=== PATIENT | male | born 1985 | race Caucasian/White ===

== ENCOUNTER 2017-04-20 05:40 | Emergency (ER) | payer OTHER ==
[2017-04-20 05:52] VITALS: RESP 16; O2SAT 98
--- NOTE | 2017-04-20 06:06 | C.PDOC ---
History Of Present Illness 31M c/o epigastric pain and vomiting that started yesterday morning. he was fine yesterday during the day, then his sx returned when he woke up for work this am. he vomited several times this am as well. reports similar illness in 2015 for which he came here. Time Seen by Provider: 04/20/17 06:06 Chief Complaint (Nursing): Abdominal Pain Past Medical History Vital Signs: Last Vital Signs Temp 98.0 F 04/20/17 05:48 Pulse 66 04/20/17 05:48 Resp 16 04/20/17 05:48 BP 111/79 04/20/17 05:48 Pulse Ox 98 04/20/17 06:14 - Medical History PMH: Kidney Stones Denies: Chronic Kidney Disease Family History: States: Other Other Family History: nc - Social History Hx Alcohol Use: No Hx Substance Use: Yes - Immunization History Hx Tetanus Toxoid Vaccination: No Hx Influenza Vaccination: No Hx Pneumococcal Vaccination: No Review Of Systems Constitutional: Negative for: Fever Cardiovascular: Negative for: Chest Pain Respiratory: Negative for: Cough, Shortness of Breath Gastrointestinal: Positive for: Nausea, Vomiting, Abdominal Pain. Negative for : Diarrhea Genitourinary: Negative for: Dysuria Neurological: Negative for: Weakness, Numbness Physical Exam - Physical Exam Appears: Well, Non-toxic, No Acute Distress Skin: Warm, Dry Head: Atraumatic Eye(s): bilateral: PERRL Oral Mucosa: Moist Cardiovascular: Rhythm Regular Respiratory: Normal Breath Sounds, No Decreased Breath Sounds, No Accessory Muscle Use, No Rales, No Rhonchi, No Stridor, No Wheezing Gastrointestinal/Abdominal: Soft, Tenderness (epigastric), No Distention, No Guarding, No Rebound Neurological/Psych: Oriented x3, Normal Motor, Normal Sensation ED Course And Treatment - Laboratory Results Result Diagrams: 04/20/17 06:16 04/20/17 06:16 O2 Sat by Pulse Oximetry: 98 Medical Decision Making Medical Decision Makin the pt reports feeling "so much better." Disposition - Disposition Disposition: HOME/ ROUTINE Disposition Time: 06:51 Condition: IMPROVED - Clinical Impression Clinical Impression: Gastritis
[2017-04-20] MEDS ORDERED: Sodium Chloride 0.9% 1,000 ML IV ONE (06:11)
[2017-04-20] MEDS ORDERED: Lidocaine 2% Viscous 100 ml PO STA (06:11)
[2017-04-20] MEDS ORDERED: Aluminum Hydroxide/Magnesium Hydroxide Susp (30 mL) PO STA (06:11)
[2017-04-20] MEDS ORDERED: Aluminum Hydroxide/Magnesium Hydroxide Susp (30 mL) ONE (06:17)
[2017-04-20] MEDS ORDERED: Sodium Chloride 0.9% 1,000 ML ONE (06:17)
[2017-04-20 06:22] LABS: BASO # 0.1 K/uL (0.0-0.2); BASO % 0.5 % (0.0-2.0); EOS # 0.2 K/uL (0.0-0.7); EOS % 1.6 % (0.0-4.0); HEMOGLOBIN 14.7 g/dL (12.0-18.0); LYMPH # 1.6 K/uL (1.0-4.3); LYMPH % 15.2 % (20.0-40.0); MEAN CORPUSCULAR HEMOGLOBIN 32.1 pg (27.0-31.0); MEAN CORPUSCULAR HGB CONC 33.8 g/dL (33.0-37.0); MEAN PLATELET VOLUME 10.4 fL (7.2-11.7); MONO # 0.8 K/uL (0.0-0.8); MONO % 7.3 % (0.0-10.0); NEUT # 8.1 K/uL (1.8-7.0); NEUT % 75.4 % (50.0-75.0); RBC 4.57 Mil/uL (4.40-5.90); RED CELL DISTRIBUTION WIDTH 12.2 % (11.5-14.5); WHITE BLOOD COUNT 10.8 K/uL (4.8-10.8)
[2017-04-20 06:33] LABS: ALBUMIN 4.2 g/dL (3.5-5.0)
[2017-04-20 06:36] LABS: ALB/GLOB RATIO 1.2 (1.0-2.1); ALT/SGPT 24 U/L (21-72); AST/SGOT 31 U/L (17-59); BLOOD UREA NITROGEN 15 mg/dL (9-20); CALCIUM 8.9 mg/dl (8.6-10.4); GFR AFRICAN-AMERICAN > 60; GFR NON-AFRICAN AMERICAN > 60; LIPASE 68 U/L (23-300)
[2017-04-20 07:01] VITALS: BP 102/65; PULSE 64; TEMP 97.8
== END 2017-04-20 07:00 | disposition home or self-care (01) ==
LOC: C.ER 05:40
DX: K29.70 Gastritis, unspecified, without bleeding (principal)
CPT/HCPCS: 80053; 83690; 85025; 96374; 96375; 99284; J2405; J7040

== ENCOUNTER 2017-04-21 04:58 | Inpatient (IN) | payer OTHER ==
[2017-04-21] MEDS ORDERED: Sodium Chloride 0.9% 1,000 ML IV ONE ×2 (05:17→05:18)
--- NOTE | 2017-04-21 05:21 | C.PDOC ---
History Of Present Illness Patient is a 31 y/o male that presents to the ED for evaluation of abdominal pain, and vomiting. Patient was seen here last night with similar symptoms, and was discharged home with rx. Otherwise, patient denies any diarrhea, urinary symptoms, or fever. Chief Complaint (Nursing): GI Problem History Per: Patient History/Exam Limitations: no limitations Onset/Duration Of Symptoms: Days Current Symptoms Are (Timing): Still Present Location Of Pain/Discomfort: Epigastric Radiation Of Pain To:: None Quality Of Discomfort: "Pain" Associated Symptoms: Nausea, Vomiting. denies: Fever, Chills, Diarrhea, Loss Of Appetite, Back Pain, Chest Pain, Constipation, Urinary Symptoms Exacerbating Factors: None Alleviating Factors: None Recent travel outside of the [place]: No Additional History Per: Patient Past Medical History Reviewed: Historical Data, Nursing Documentation, Vital Signs Vital Signs: Last Vital Signs Temp 98.2 F 04/21/17 05:05 Pulse 76 04/21/17 05:05 Resp 14 04/21/17 05:05 BP 136/88 04/21/17 05:05 Pulse Ox 99 04/21/17 06:24 - Medical History PMH: Kidney Stones Denies: Chronic Kidney Disease Family History: States: Unknown Family Hx - Social History Hx Alcohol Use: No Hx Substance Use: Yes - Immunization History Hx Tetanus Toxoid Vaccination: No Hx Influenza Vaccination: No Hx Pneumococcal Vaccination: No Review Of Systems Except As Marked, All Systems Reviewed And Found Negative. Constitutional: Negative for: Fever, Chills Gastrointestinal: Positive for: Nausea, Vomiting, Abdominal Pain. Negative for : Diarrhea, Constipation Genitourinary: Negative for: Dysuria, Frequency, Incontinence Musculoskeletal: Negative for: Back Pain Physical Exam - Physical Exam Appears: Non-toxic, Other (In painful distress) Skin: Normal Color, Warm, Dry Head: Atraumatic, Normacephalic Eye(s): bilateral: Normal Inspection Neck: Normal ROM, Supple Chest: Symmetrical Cardiovascular: Rhythm Regular, No Murmur Respiratory: Normal Breath Sounds, No Rales, No Rhonchi, No Wheezing Gastrointestinal/Abdominal: Soft, Tenderness (epigastric), No Distention, No Guarding, No Rebound, Other (active vomiting) Extremity: Bilateral: Atraumatic, Normal ROM Neurological/Psych: Oriented x3, Normal Speech, Normal Cognition ED Course And Treatment - Laboratory Results Result Diagrams: 04/21/17 05:44 O2 Sat by Pulse Oximetry: 99 (on RA) Pulse Ox Interpretation: Normal Progress Note: Blood work, urinalysis ordered and reviewed. Patient was treated with Zofran, Bentyl, Toradol, and IV fluids. Disposition - Disposition Referrals: [facility] at [facility] [Outside] Disposition Time: 07:00 Condition: STABLE - Clinical Impression Clinical Impression: Abdominal pain, Vomiting - Scribe Statement The provider has reviewed the documentation as recorded by the Scribe Sara Be All medical record entries made by the Iramibe were at my direction and personally dictated by me. I have reviewed the chart and agree that the record accurately reflects my personal performance of the history, physical exam, medical decision making, and the department course for this patient. I have also personally directed, reviewed, and agree with the discharge instructions and disposition. Physician Patient Turnover Patient Signed Over To: Albaro Ca Handoff Comments: awaiting Abd CT.
[2017-04-21 05:48] LABS: BASO # 0.1 K/uL (0.0-0.2); BASO % 1.1 % (0.0-2.0); EOS # 0.1 K/uL (0.0-0.7); EOS % 1.1 % (0.0-4.0); HEMOGLOBIN 15.1 g/dL (12.0-18.0); LYMPH # 2.3 K/uL (1.0-4.3); LYMPH % 21.5 % (20.0-40.0); MEAN CELL VOLUME 95.3 fL (80.0-94.0); MEAN CORPUSCULAR HEMOGLOBIN 31.8 pg (27.0-31.0); MEAN CORPUSCULAR HGB CONC 33.3 g/dL (33.0-37.0); MEAN PLATELET VOLUME 10.2 fL (7.2-11.7); MONO # 0.7 K/uL (0.0-0.8); MONO % 6.6 % (0.0-10.0); NEUT # 7.5 K/uL (1.8-7.0); NEUT % 69.7 % (50.0-75.0); RBC 4.76 Mil/uL (4.40-5.90); RED CELL DISTRIBUTION WIDTH 12.2 % (11.5-14.5); WHITE BLOOD COUNT 10.7 K/uL (4.8-10.8)
[2017-04-21 05:59] LABS: URINE BACTERIA RARE (<OCC); URINE BILIRUBIN NEGATIVE (NEGATIVE); URINE BLOOD NEGATIVE (NEGATIVE); URINE CLARITY Clear (Clear); URINE COLOR Yellow (YELLOW); URINE GLUCOSE (UA) NORMAL (Normal); URINE LEUKOCYTE ESTERASE 1+ Leu/uL (Negative); URINE NITRATE NEGATIVE (NEGATIVE); URINE PROTEIN NEGATIVE (NEGATIVE); URINE UROBILINOGEN NORMAL mg/dL (0.2-1.0)
[2017-04-21 06:20] LABS: ALBUMIN 4.4 g/dL (3.5-5.0)
[2017-04-21 06:23] LABS: ALB/GLOB RATIO 1.2 (1.0-2.1); ALT/SGPT 22 U/L (21-72); AST/SGOT 37 U/L (17-59); BLOOD UREA NITROGEN 12 mg/dL (9-20); GFR AFRICAN-AMERICAN > 60; GFR NON-AFRICAN AMERICAN > 60
[2017-04-21 06:24] LABS: CALCIUM 9.1 mg/dl (8.6-10.4); LIPASE 101 U/L (23-300)
[2017-04-21] MEDS ORDERED: Iohexol 240 (50 ml) ONE (06:51)
[2017-04-21] MEDS ORDERED: Potassium Chloride 20 mEq ER Tab PO STA (07:01)
[2017-04-21] MEDS ORDERED: Potassium Chloride 20 mEq ER Tab PO ONE (08:11)
[2017-04-21] MEDS ORDERED: Sodium Chloride 0.9% 1,000 ML ONE (08:11)
[2017-04-21] MEDS ORDERED: Iohexol 350mg/ml 100 ML ONE (08:41)
--- NOTE | 2017-04-21 09:56 | CT ---
PROCEDURE: CT Abdomen and Pelvis with contrast HISTORY: abd pain COMPARISON: None. TECHNIQUE: Helical CT of the abdomen pelvis was performed following oral and intravenous contrast administration. Contrast dose: Omnipaque 350-100 Radiation dose: Total exam DLP = 405 mGy-cm. This CT exam was performed using one or more of the following dose reduction techniques: Automated exposure control, adjustment of the mA and/or kV according to patient size, and/or use of iterative reconstruction technique. FINDINGS: LOWER THORAX: Unrema pole 4 mm subpleural nodule is stable at the right lower lobe based again a periodic noncalcified. Lung bases otherwise appear remarkable for a small hiatal hernia. LIVER: Fatty liver again identified mildly. Borderline hepatomegaly. No intrinsic mass or intrahepatic biliary duct dilatation. GALLBLADDER AND BILE DUCTS: Gallbladder is distended but otherwise unremarkable and appears stable in appearance overall. No extrapyramidal though no intrahepatic biliary duct dilatation identified. PANCREAS: Unremarkable. No gross lesion or ductal dilatation. SPLEEN: Unremarkable. ADRENALS: Unremarkable. No mass. KIDNEYS AND URETERS: Unremarkable. No hydronephrosis. No solid mass. VASCULATURE: Unremarkable. No aortic aneurysm. BOWEL: No bowel obstruction measure edema ascites are presternal gas identified however, there is mural thickening involving the hepatic flexure and transverse colon segments. Oral contrast has not opacified the large bowel and the majority of small bowel, limiting the evaluation. There is at least segmental colitis. Pancolitis is difficult to completely exclude given retained fecal material obscuring the lumen of numerous large bowel segments as well as the lack of oral contrast migration. No abscess identified. APPENDIX: Normal appendix. PERITONEUM: Unremarkable. No free fluid. No free air. LYMPH NODES: Unremarkable. No enlarged lymph nodes. BLADDER: Unremarkable. REPRODUCTIVE: Unremarkable. BONES: No acute fracture. OTHER FINDINGS: None. IMPRESSION: 1. Findings suspicious for segmental colitis affecting the bilateral flexors as well as a traversed segment of the large bowel. Pancolitis difficult to completely exclude however lack of oral contrast transit and retained fecal material obscure the ascending and descending colon segments. No abscess, free air, ascites or definite mesenteric edema. Further clinical correlation is advised. 2. No additional potential acute findings. 3. Stable benign nodule right lower lobe. Sign
[2017-04-21] MEDS ORDERED: Piperacillin/Tazobact 3.375 gm 100 ML IVPB STA (09:59)
[2017-04-21] MEDS ORDERED: DiphenhydrAMINE 50 mg/ml Inj IVP STA (10:21)
[2017-04-21] MEDS ORDERED: DiphenhydrAMINE 50 mg/ml Inj ONE (10:23)
[2017-04-21] MEDS: Dextrose 5%/0.9% NS 1,000 ML IV SCH ×2 (13:05→21:23)
[2017-04-21] MEDS: Ciprofloxacin 400mg/200ml D5W 400 MG/200 ML BAG IVPB SCH ×2 (13:06→22:00)
[2017-04-21] MEDS ORDERED: HYDROmorphone 1 mg/ml ISec IVP PRN (15:13)
[2017-04-21] MEDS: metroNIDAZOLE IV 500 mg/100 ml 500 MG/100 ML BAG IVPB SCH ×2 (15:15→22:00)
[2017-04-21] MEDS ORDERED: Dextrose 5%/0.45% NS 1,000 ML IV SCH (17:15)
[2017-04-21] MEDS: Potassium Chloride 10 MEQ in Dextrose 5%/0.45% NS 1,000 ML IV SCH (21:19)
--- NOTE | 2017-04-21 23:08 | CP.PCM.HP ---
History of Present Illness - History of Present Illness History of Present Illness: Patient is a 31 y/o male that presents to the ED for evaluation of abdominal pain, and vomiting. Patient was seen here last night with similar symptoms, and was discharged home with rx. Otherwise, patient denies any diarrhea, urinary symptoms, or fever. Present on Admission - Present on Admission Any Indicators Present on Admission: Yes Past Patient History - Infectious Disease Hx of Infectious Diseases: None - Past Medical History & Family History Past Medical History?: Yes - Past Social History Smoking Status: Heavy Smoker > 10 Cigarettes Daily - CARDIAC Hx Cardiac Disorders: No - PULMONARY Hx Respiratory Disorders: No - NEUROLOGICAL Hx Neurological Disorder: No - HEENT Hx HEENT Problems: No - RENAL Hx Chronic Kidney Disease: No Hx Kidney Stones: Yes - ENDOCRINE/METABOLIC Hx Endocrine Disorders: No - HEMATOLOGICAL/ONCOLOGICAL Hx Blood Disorders: No - INTEGUMENTARY Hx Dermatological Problems: No - MUSCULOSKELETAL/RHEUMATOLOGICAL Hx Musculoskeletal Disorders: No Hx Falls: No - GASTROINTESTINAL Hx Gastrointestinal Disorders: No - GENITOURINARY/GYNECOLOGICAL Hx Genitourinary Disorders: No - PSYCHIATRIC Hx Substance Use: Yes - SURGICAL HISTORY Hx Surgeries: Yes Other/Comment: testicular surgery at age approx 13 yrs old - ANESTHESIA Hx Anesthesia: Yes Hx Anesthesia Reactions: No Hx Malignant Hyperthermia: No Meds Home Medications: Home Medication List Medication Instructions Recorded Confirmed Type Ciprofloxacin [Cipro] 500 mg PO BID #6 tab 04/25/17 Rx Metoclopramide HCl [Reglan] 5 mg PO TID #9 tablet 04/25/17 Rx Metronidazole [Flagyl] 500 mg PO Q8 #9 tablet 04/25/17 Rx Pantoprazole [Protonix] 40 mg PO DAILY #30 ect 04/25/17 Rx Allergies/Adverse Reactions: Allergies Allergy/AdvReac Type Severity Reaction Status Date / Time No Known Allergies Allergy Verified 04/21/17 05:08 Results - Vital Signs Recent Vital Signs: Last Vital Signs Temp 98.5 F 04/21/17 16:27 Pulse 71 04/21/17 16:27 Resp 20 04/21/17 16:27 BP 113/68 04/21/17 16:27 Pulse Ox 99 04/21/17 16:27 - Labs Result Diagrams: 04/25/17 09:59 04/25/17 09:59
[2017-04-22] MEDS: Potassium Chloride 10 MEQ in Dextrose 5%/0.45% NS 1,000 ML IV SCH ×3 (05:35→17:44)
[2017-04-22] MEDS: metroNIDAZOLE IV 500 mg/100 ml 500 MG/100 ML BAG IVPB SCH ×3 (05:36→21:38)
[2017-04-22 06:25] LABS: BASO % 0.5 % (0.0-2.0); EOS # 0.1 K/uL (0.0-0.7); EOS % 0.9 % (0.0-4.0); LYMPH # 2.4 K/uL (1.0-4.3); LYMPH % 28.8 % (20.0-40.0); MEAN CELL VOLUME 95.6 fL (80.0-94.0); MEAN CORPUSCULAR HEMOGLOBIN 32.7 pg (27.0-31.0); MEAN CORPUSCULAR HGB CONC 34.2 g/dL (33.0-37.0); MEAN PLATELET VOLUME 10.1 fL (7.2-11.7); MONO # 0.9 K/uL (0.0-0.8); MONO % 10.6 % (0.0-10.0); NEUT % 59.2 % (50.0-75.0); NRBC % 0.1 % (0.0-2.0); RBC 3.99 Mil/uL (4.40-5.90); RED CELL DISTRIBUTION WIDTH 12.1 % (11.5-14.5); WHITE BLOOD COUNT 8.4 K/uL (4.8-10.8)
[2017-04-22 06:37] LABS: BLOOD UREA NITROGEN 10 mg/dL (9-20); CALCIUM 7.6 mg/dl (8.6-10.4); GFR AFRICAN-AMERICAN > 60; GFR NON-AFRICAN AMERICAN > 60
[2017-04-22] MEDS: Dextrose 5%/0.9% NS 1,000 ML IV SCH ×2 (08:23→20:04)
[2017-04-22] MEDS ORDERED: Propofol 10 mg/ml Inj (20 ML) ONE (10:53)
[2017-04-22] MEDS: Ciprofloxacin 400mg/200ml D5W 400 MG/200 ML BAG IVPB SCH ×2 (12:38→22:19)
[2017-04-22 18:28] LABS: URINE BACTERIA FEW (<OCC); URINE BILIRUBIN NEGATIVE (NEGATIVE); URINE BLOOD NEGATIVE (NEGATIVE); URINE CLARITY Hazy (Clear); URINE COLOR Amber (YELLOW); URINE GLUCOSE (UA) NORMAL (Normal); URINE LEUKOCYTE ESTERASE NEG Leu/uL (Negative); URINE NITRATE NEGATIVE (NEGATIVE); URINE PROTEIN 1+ mg/dL (NEGATIVE); URINE UROBILINOGEN NORMAL mg/dL (0.2-1.0)
--- NOTE | 2017-04-22 23:05 | CP.PCM.PN ---
Subjective - Date & Time of Evaluation Date of Evaluation: 04/22/17 Time of Evaluation: 20:45 - Subjective Subjective: Pt underwent EGD which shows gastritis and doudenitis, pt is on clear liquid diet Objective - Vital Signs/Intake and Output Vital Signs (last 24 hours): Temp Pulse Resp BP Pulse Ox 98.0 F 56 L 20 117/69 98 04/22/17 15:00 04/22/17 15:00 04/22/17 15:00 04/22/17 15:00 04/22/17 15:00 Intake and Output: 04/22/17 04/23/17 18:59 06:59 Intake Total 2100 Balance 2100 - Medications Medications: Current Medications Bisacodyl (Dulcolax) 10 mg PO ONCE ONE Stop: 04/24/17 17:01 Hydromorphone HCl (Dilaudid) 1 mg IVP Q4H PRN PRN Reason: Pain, severe (8-10) Ciprofloxacin (Cipro 400mg/200ml Dsw) 400 mg in 200 mls @ 133 mls/hr IVPB Q12H [facility] Last Admin: 04/22/17 22:19 Dose: 133 mls/hr Dextrose/Sodium Chloride (Dextrose 5%/0.9% Ns 1000 Ml) 1,000 mls @ 100 mls/hr IV .Q10H MAXIME Last Admin: 04/22/17 20:04 Dose: Not Given Metronidazole (Flagyl) 500 mg in 100 mls @ 100 mls/hr IVPB Q8 MAXIME Last Admin: 04/22/17 21:38 Dose: 100 mls/hr Potassium Chloride 10 meq/ (Dextrose/Sodium Chloride) 1,005 mls @ 100 mls/hr IV .Q10H3M [facility] Last Admin: 04/22/17 17:44 Dose: 100 mls/hr Metoclopramide HCl (Reglan) 5 mg IVP Q6 MAXIME Last Admin: 04/22/17 17:42 Dose: 5 mg Ondansetron HCl (Zofran Inj) 4 mg IVP Q6 PRN PRN Reason: Nausea/Vomiting Last Admin: 04/21/17 15:13 Dose: 4 mg Pneumococcal Polyvalent Vaccine (Pneumovax 23 Vaccine) 0.5 ml IM .ONCE ONE Stop: 04/23/17 10:01 Polyethylene Glycol/Electrolytes (Golytely) 4,000 ml PO ONCE ONE Stop: 04/24/17 09:01 Sucralfate (Carafate Tab) 1 gm PO ACBHS [facility] Last Admin: 04/22/17 21:39 Dose: 1 gm - Labs Labs: 04/22/17 06:16 04/22/17 06:16 - Constitutional Appears: No Acute Distress - Head Exam Head Exam: ATRAUMATIC, NORMAL INSPECTION, NORMOCEPHALIC - Eye Exam Eye Exam: EOMI, Normal appearance, PERRL Pupil Exam: NORMAL ACCOMODATION, PERRL - Cardiovascular Exam Cardiovascular Exam: +S1, +S2 - GI/Abdominal Exam GI & Abdominal Exam: Soft, Normal Bowel Sounds. absent: Tenderness Assessment and Plan (1) Abnormal findings on esophagogastroduodenoscopy (EGD) Status: Acute (2) Abdominal pain Status: Acute (3) Colitis Status: Acute (4) Acute gastroenteritis Status: Acute (5) Gastritis Status: Acute
[2017-04-23] MEDS: metroNIDAZOLE IV 500 mg/100 ml 500 MG/100 ML BAG IVPB SCH ×3 (05:25→21:36)
[2017-04-23] MEDS: Dextrose 5%/0.9% NS 1,000 ML IV SCH ×3 (05:34→23:18)
[2017-04-23] MEDS: Potassium Chloride 10 MEQ in Dextrose 5%/0.45% NS 1,000 ML IV SCH ×4 (06:32→19:23)
[2017-04-23] MEDS ORDERED: Pneumococcal 23-Valent Vaccine IM ONE (10:00)
[2017-04-23 10:18] LABS: C DIFF TOXIN A B NEGATIVE (NEGATIVE)
[2017-04-23 10:41] LABS: FECAL LEUKOCYTES NEGATIVE (NEGATIVE)
[2017-04-23] MEDS: Ciprofloxacin 400mg/200ml D5W 400 MG/200 ML BAG IVPB SCH ×2 (11:27→22:09)
[2017-04-24] MEDS: Potassium Chloride 10 MEQ in Dextrose 5%/0.45% NS 1,000 ML IV SCH ×3 (00:23→17:44)
--- NOTE | 2017-04-24 01:21 | CP.PCM.PN ---
Subjective - Date & Time of Evaluation Date of Evaluation: 04/23/17 Time of Evaluation: 13:05 - Subjective Subjective: Pt underwent EGD which shows gastritis and doudenitis, pt is on clear liquid diet Objective - Vital Signs/Intake and Output Vital Signs (last 24 hours): Temp Pulse Resp BP Pulse Ox 98.5 F 70 97 H 116/73 20 L 04/24/17 00:00 04/24/17 00:00 04/24/17 00:00 04/24/17 00:00 04/24/17 00:00 Intake and Output: 04/23/17 04/24/17 18:59 06:59 Intake Total 1400 Balance 1400 - Medications Medications: Current Medications Bisacodyl (Dulcolax) 10 mg PO ONCE ONE Stop: 04/24/17 17:01 Hydromorphone HCl (Dilaudid) 1 mg IVP Q4H PRN PRN Reason: Pain, severe (8-10) Ciprofloxacin (Cipro 400mg/200ml Dsw) 400 mg in 200 mls @ 133 mls/hr IVPB Q12H [facility] Last Admin: 04/23/17 22:09 Dose: 133 mls/hr Dextrose/Sodium Chloride (Dextrose 5%/0.9% Ns 1000 Ml) 1,000 mls @ 100 mls/hr IV .Q10H [facility] Last Admin: 04/23/17 23:18 Dose: Not Given Metronidazole (Flagyl) 500 mg in 100 mls @ 100 mls/hr IVPB Q8 [facility] Last Admin: 04/23/17 21:36 Dose: 100 mls/hr Potassium Chloride 10 meq/ (Dextrose/Sodium Chloride) 1,005 mls @ 100 mls/hr IV .Q10H3M [facility] Last Admin: 04/24/17 00:23 Dose: 100 mls/hr Metoclopramide HCl (Reglan) 5 mg IVP Q6 AMX[facility] Last Admin: 04/24/17 00:23 Dose: 5 mg Ondansetron HCl (Zofran Inj) 4 mg IVP Q6 PRN PRN Reason: Nausea/Vomiting Last Admin: 04/21/17 15:13 Dose: 4 mg Polyethylene Glycol/Electrolytes (Golytely) 4,000 ml PO ONCE ONE Stop: 04/24/17 09:01 Sucralfate (Carafate Tab) 1 gm PO [facility] Last Admin: 04/23/17 21:36 Dose: 1 gm - Constitutional Appears: No Acute Distress - Head Exam Head Exam: ATRAUMATIC, NORMAL INSPECTION, NORMOCEPHALIC - Eye Exam Eye Exam: EOMI, Normal appearance, PERRL Pupil Exam: NORMAL ACCOMODATION, PERRL - Respiratory Exam Respiratory Exam: Clear to Ausculation Bilateral, NORMAL BREATHING PATTERN - Cardiovascular Exam Cardiovascular Exam: REGULAR RHYTHM, +S1, +S2. absent: Murmur - GI/Abdominal Exam GI & Abdominal Exam: Soft, Normal Bowel Sounds. absent: Tenderness Assessment and Plan (1) Abnormal findings on esophagogastroduodenoscopy (EGD) Status: Acute (2) Abdominal pain Status: Acute (3) Colitis Status: Acute (4) Acute gastroenteritis Status: Acute (5) Gastritis Status: Acute
[2017-04-24] MEDS: metroNIDAZOLE IV 500 mg/100 ml 500 MG/100 ML BAG IVPB SCH ×3 (05:19→21:32)
[2017-04-24] MEDS ORDERED: Peg-Electrolyte Oral Soln 4L (Golytely) PO ONE (09:00)
[2017-04-24] MEDS: Dextrose 5%/0.9% NS 1,000 ML IV SCH (09:00)
[2017-04-24] MEDS: Ciprofloxacin 400mg/200ml D5W 400 MG/200 ML BAG IVPB SCH ×2 (11:29→22:16)
[2017-04-24] MEDS ORDERED: Bisacodyl 5mg EC Tab PO ONE (17:00)
--- NOTE | 2017-04-24 21:31 | CP.PCM.DIS ---
Provider - Provider Date of Admission: 04/23/17 11:46 Attending physician: Danny Allen MD Diagnosis - Discharge Diagnosis (1) Abnormal findings on esophagogastroduodenoscopy (EGD) Status: Acute (2) Abdominal pain Status: Acute (3) Colitis Status: Acute (4) Acute gastroenteritis Status: Acute (5) Gastritis Status: Acute Hospital Course - Lab Results Lab Results: Most Recent Lab Values WBC 8.4 K/uL (4.8-10.8) 04/22/17 06:16 RBC 3.99 Mil/uL (4.40-5.90) L 04/22/17 06:16 Hgb 13.0 g/dL (12.0-18.0) D 04/22/17 06:16 Hct 38.1 % (35.0-51.0) 04/22/17 06:16 MCV 95.6 fL (80.0-94.0) H 04/22/17 06:16 MCH 32.7 pg (27.0-31.0) H 04/22/17 06:16 MCHC 34.2 g/dL (33.0-37.0) 04/22/17 06:16 RDW 12.1 % (11.5-14.5) 04/22/17 06:16 Plt Count 213 K/uL (130-400) 04/22/17 06:16 MPV 10.1 fL (7.2-11.7) 04/22/17 06:16 Neut % (Auto) 59.2 % (50.0-75.0) 04/22/17 06:16 Lymph % (Auto) 28.8 % (20.0-40.0) 04/22/17 06:16 [place] % (Auto) 10.6 % (0.0-10.0) H 04/22/17 06:16 Eos % (Auto) 0.9 % (0.0-4.0) 04/22/17 06:16 Baso % (Auto) 0.5 % (0.0-2.0) 04/22/17 06:16 Neut # 5.0 K/uL (1.8-7.0) 04/22/17 06:16 Lymph # 2.4 K/uL (1.0-4.3) 04/22/17 06:16 [place] # 0.9 K/uL (0.0-0.8) H 04/22/17 06:16 Eos # 0.1 K/uL (0.0-0.7) 04/22/17 06:16 Baso # 0.0 K/uL (0.0-0.2) 04/22/17 06:16 ESR 5 mm/hr (0-15) 04/22/17 06:16 Sodium 137 mmol/L (132-148) 04/22/17 06:16 Potassium 3.3 mmol/L (3.6-5.2) L 04/22/17 06:16 Chloride 103 mmol/L (98-107) 04/22/17 06:16 Carbon Dioxide 22 mmol/L (22-30) 04/22/17 06:16 Anion Gap 15 (10-20) 04/22/17 06:16 BUN 10 mg/dL (9-20) 04/22/17 06:16 Creatinine 0.7 MG/DL (0.8-1.5) L 04/22/17 06:16 Est GFR ( Amer) > 60 04/22/17 06:16 Est GFR (Non-Af Amer) > 60 04/22/17 06:16 Random Glucose 92 mg/dL (75-110) 04/22/17 06:16 Calcium 7.6 mg/dl (8.6-10.4) L 04/22/17 06:16 Total Bilirubin 2.3 mg/dL (0.2-1.3) H 04/21/17 05:44 AST 37 U/L (17-59) 04/21/17 05:44 ALT 22 U/L (21-72) 04/21/17 05:44 Alkaline Phosphatase 95 U/L (38-126) 04/21/17 05:44 Total Protein 8.1 g/dL (6.3-8.3) 04/21/17 05:44 Albumin 4.4 g/dL (3.5-5.0) 04/21/17 05:44 Globulin 3.7 gm/dL (2.2-3.9) 04/21/17 05:44 Albumin/Globulin Ratio 1.2 (1.0-2.1) 04/21/17 05:44 Lipase 101 U/L (23-300) 04/21/17 05:44 Carcinoembryonic Ag 0.8 ng/mL (0-3.0) 04/22/17 06:16 Urine Color Ryann (YELLOW) 04/22/17 18:09 Urine Clarity Hazy (Clear) 04/22/17 18:09 Urine pH 6.0 (5.0-8.0) 04/22/17 18:09 Ur Specific [place] 1.034 (1.003-1.030) H 04/22/17 18:09 Urine Protein 1+ mg/dL (NEGATIVE) H 04/22/17 18:09 Urine Glucose (UA) Normal mg/dL (Normal) 04/22/17 18:09 Urine Ketones 1+ mg/dL (NEGATIVE) H 04/22/17 18:09 Urine Blood Negative (NEGATIVE) 04/22/17 18:09 Urine Nitrate Negative (NEGATIVE) 04/22/17 18:09 Urine Bilirubin Negative (NEGATIVE) 04/22/17 18:09 Urine Urobilinogen Normal mg/dL (0.2-1.0) 04/22/17 18:09 Ur Leukocyte Esterase Neg Fernanda/uL (Negative) 04/22/17 18:09 Urine WBC (Auto) 5 /hpf (0-5) 04/22/17 18:09 Urine RBC (Auto) 4 /hpf (0-3) H 04/22/17 18:09 Urine Bacteria Few (<OCC) H 04/22/17 18:09 Stool Leukocytes, Qual Negative (NEGATIVE) 04/21/17 Unknown C. difficile Ag & Toxin Negative (NEGATIVE) 04/21/17 Unknown Discharge Exam - Head Exam Head Exam: ATRAUMATIC, NORMAL INSPECTION, NORMOCEPHALIC Discharge Plan - Follow Up Plan Condition: STABLE Disposition: HOME/ ROUTINE Referrals: [facility] [Outside]
--- NOTE | 2017-04-24 21:31 | CP.PCM.PN ---
Subjective - Date & Time of Evaluation Date of Evaluation: 04/24/17 Time of Evaluation: 10:00 - Subjective Subjective: Pt seen & examined, is for colononscopy tommorow morning Objective - Vital Signs/Intake and Output Vital Signs (last 24 hours): Temp Pulse Resp BP Pulse Ox 98.2 F 56 L 20 115/77 97 04/24/17 15:00 04/24/17 15:00 04/24/17 15:00 04/24/17 15:00 04/24/17 15:00 - Medications Medications: Current Medications Hydromorphone HCl (Dilaudid) 1 mg IVP Q4H PRN PRN Reason: Pain, severe (8-10) Ciprofloxacin (Cipro 400mg/200ml Dsw) 400 mg in 200 mls @ 133 mls/hr IVPB Q12H [facility] Last Admin: 04/24/17 11:29 Dose: 133 mls/hr Metronidazole (Flagyl) 500 mg in 100 mls @ 100 mls/hr IVPB Q8 [facility] Last Admin: 04/24/17 15:15 Dose: 100 mls/hr Metoclopramide HCl (Reglan) 5 mg IVP Q6 MAXIME Last Admin: 04/24/17 17:44 Dose: 5 mg Ondansetron HCl (Zofran Inj) 4 mg IVP Q6 PRN PRN Reason: Nausea/Vomiting Last Admin: 04/21/17 15:13 Dose: 4 mg Sucralfate (Carafate Tab) 1 gm PO ACBHS [facility] Last Admin: 04/24/17 08:39 Dose: Not Given - Constitutional Appears: No Acute Distress - Head Exam Head Exam: ATRAUMATIC, NORMAL INSPECTION, NORMOCEPHALIC - Eye Exam Eye Exam: EOMI, Normal appearance, PERRL Pupil Exam: NORMAL ACCOMODATION, PERRL - Respiratory Exam Respiratory Exam: Clear to Ausculation Bilateral, NORMAL BREATHING PATTERN - Cardiovascular Exam Cardiovascular Exam: REGULAR RHYTHM, +S1, +S2. absent: Murmur - GI/Abdominal Exam GI & Abdominal Exam: Soft, Normal Bowel Sounds. absent: Tenderness - Neurological Exam Neurological Exam: Alert, Awake, CN II-XII Intact, Normal Gait, Oriented x3 - Psychiatric Exam Psychiatric exam: Normal Affect, Normal Mood Assessment and Plan (1) Abnormal findings on esophagogastroduodenoscopy (EGD) Status: Acute (2) Abdominal pain Status: Acute (3) Colitis Status: Acute (4) Acute gastroenteritis Status: Acute (5) Gastritis Status: Acute
[2017-04-24] MEDS: Potassium Chl 10 mEq in D5-1/2 1,000 ML IV SCH (23:52)
[2017-04-25] MEDS: metroNIDAZOLE IV 500 mg/100 ml 500 MG/100 ML BAG IVPB SCH ×2 (05:14→14:21)
[2017-04-25 10:04] LABS: BASO % 0.8 % (0.0-2.0); EOS # 0.2 K/uL (0.0-0.7); EOS % 2.9 % (0.0-4.0); HEMOGLOBIN 14.1 g/dL (12.0-18.0); LYMPH # 1.7 K/uL (1.0-4.3); LYMPH % 31.7 % (20.0-40.0); MEAN CELL VOLUME 94.5 fL (80.0-94.0); MEAN CORPUSCULAR HGB CONC 33.8 g/dL (33.0-37.0); MONO # 0.7 K/uL (0.0-0.8); MONO % 13.2 % (0.0-10.0); NEUT # 2.8 K/uL (1.8-7.0); NEUT % 51.4 % (50.0-75.0); RBC 4.42 Mil/uL (4.40-5.90); RED CELL DISTRIBUTION WIDTH 11.9 % (11.5-14.5); WHITE BLOOD COUNT 5.4 K/uL (4.8-10.8)
[2017-04-25 10:16] LABS: ALB/GLOB RATIO 1.1 (1.0-2.1); ALT/SGPT 48 U/L (21-72); AST/SGOT 51 U/L (17-59); BLOOD UREA NITROGEN 7 mg/dL (9-20); GFR AFRICAN-AMERICAN > 60; GFR NON-AFRICAN AMERICAN > 60
[2017-04-25] MEDS: Potassium Chl 10 mEq in D5-1/2 1,000 ML IV SCH (10:21)
[2017-04-25] MEDS: Ciprofloxacin 400mg/200ml D5W 400 MG/200 ML BAG IVPB SCH (11:24)
--- NOTE | 2017-04-25 11:57 | CP.PCM.PN ---
Subjective - Date & Time of Evaluation Date of Evaluation: 04/25/17 Time of Evaluation: 19:00 Objective - Vital Signs/Intake and Output Vital Signs (last 24 hours): Temp Pulse Resp BP Pulse Ox 98.3 F 52 L 20 107/57 L 97 04/25/17 08:48 04/25/17 08:48 04/25/17 08:48 04/25/17 08:48 04/25/17 08:48 Intake and Output: 04/25/17 04/25/17 06:59 18:59 Intake Total 800 Balance 800 - Medications Medications: Current Medications Hydromorphone HCl (Dilaudid) 1 mg IVP Q4H PRN PRN Reason: Pain, severe (8-10) Ciprofloxacin (Cipro 400mg/200ml Dsw) 400 mg in 200 mls @ 133 mls/hr IVPB Q12H [facility] Last Admin: 04/25/17 11:24 Dose: 133 mls/hr Metronidazole (Flagyl) 500 mg in 100 mls @ 100 mls/hr IVPB Q8 [facility] Last Admin: 04/25/17 05:14 Dose: 100 mls/hr Potassium Chloride/Dextrose/Sod Cl (Potassium Chl 10 Meq In D5-1/2ns) 1,000 mls @ 100 mls/hr IV .Q10H [facility] Last Admin: 04/25/17 10:21 Dose: 100 mls/hr Metoclopramide HCl (Reglan) 5 mg IVP Q6 MAXIME Last Admin: 04/25/17 05:15 Dose: 5 mg Ondansetron HCl (Zofran Inj) 4 mg IVP Q6 PRN PRN Reason: Nausea/Vomiting Last Admin: 04/21/17 15:13 Dose: 4 mg Sucralfate (Carafate Tab) 1 gm PO ACBHS [facility] Last Admin: 04/25/17 08:30 Dose: Not Given - Labs Labs: 04/25/17 09:59 04/25/17 09:59 Assessment and Plan (1) Abnormal findings on esophagogastroduodenoscopy (EGD) Status: Acute (2) Abdominal pain Status: Acute (3) Colitis Status: Acute (4) Acute gastroenteritis Status: Acute (5) Gastritis Status: Acute
[2017-04-25] MEDS ORDERED: Propofol 10 mg/ml Inj (20 ML) ONE ×2 (13:30→13:37)
[2017-04-25] MEDS ORDERED: Lactated Ringer's 1,000 ML IV ONE (13:30)
--- NOTE | 2017-04-25 15:00 | CON ---
DATE: 04/21/2017 LOCATION: 352, bed A I was called for GI consultation by the admitting medical staff. The patient was seen and fully examined for GI consultation on 04/21/2017. The entire chart was reviewed including but not limited to the most recent lab and radiologic results, current and previous medication list, current and previous medical events, allergic to medication list as well as old available current and previous medical records. I did discuss with the staff at length. HISTORY: This is a 31-year-old male who was admitted to the hospital through the Emergency Room with excessive severe abdominal pain, recurrent nausea and vomiting with recent change of bowel movement over the last 2 to 3 days with more than 1 visit to the Emergency Room due to above with postprandial abdominal distension. No reported active bleeding, however, the patient stated that his contained very dark, brownish to black color vomit. The patient also had such episodes in 2014, no aggressive GI work up done at that time. PAST MEDICAL HISTORY: Significant for renal stones. ALLERGIES TO MEDICATIONS: Unknown. ALCOHOL INTAKE: None. Occasional cigarette smoking reported. FAMILY HISTORY: Unrelated to specific GI disorder. After being admitted to the hospital, the patient was found to have normal hemoglobin and hematocrit with low potassium level of 3.2 and increased total bilirubin to 2.3. Abdominal and pelvic CAT scan was done. Official report is seen, indicative of colitis with some retained fecal material in the ascending and descending colon. PHYSICAL EXAMINATION: GENERAL: A 31-year-old male, appeared to be awake, alert and oriented. VITAL SIGNS: Afebrile with heart rate of 72 , respiratory rate 18 to 20 with blood pressure 110/66. HEENT: Showed pale, dry oral mucous membrane. Nonicteric sclerae. LUNGS: Revealed scattered crepitations, decreased air entry at bases. LYMPH NODES: No lymphadenitis or lymphadenopathy. HEART: Positive S1 and S2. ABDOMEN: Soft with generalized to severe tenderness in the midepigastric as well as the right and the left lower quadrant. No mass or organomegaly. No rebound tenderness or guarding. RECTAL: The patient refused. EXTREMITIES: With significant clubbing, cyanosis or edema. NEUROLOGIC: No new reported neurological deficits, sensory or motor. IMPRESSION: 1. Re-exacerbation of peptic ulcer disease with nausea and vomiting of coffee-ground material like contents. Rule out gastric versus duodenal ulcer. 2. Acute colitis of unclear etiology, versus an early stage of inflammatory bowel disease, by radiology study results only. 3. Known history of renal stone. PLAN: 1. Agree with your plan. 2. IV antibiotics. 3. Hydration. 4. Correct any underlying electrolyte imbalance. 5. Endoscopic evaluation of GI tract if the patient's symptoms persist. 6. Sedimentation rate. 7. Cancer markers including CEA. 8. PPI IV. 9. Reglan IV. Further recommendations to follow. Thank you for letting me participate in your patient's care and management. Delaney Kenny MD
[2017-04-25 15:52] VITALS: BP 121/70; PULSE 56; RESP 20; TEMP 98.3; O2SAT 97
--- NOTE | 2017-04-25 17:38 | CP.PCM.PN ---
Subjective - Date & Time of Evaluation Date of Evaluation: 04/25/17 Time of Evaluation: 15:00 - Subjective Subjective: Pt seen and and examined today, states abdominal pain improved, denies any N/V , tolerating diet s/p EGD/colonoscopy - gastritis ( see full report for details ) Objective - Vital Signs/Intake and Output Vital Signs (last 24 hours): Temp Pulse Resp BP Pulse Ox 98.3 F 56 L 20 121/70 97 04/25/17 15:00 04/25/17 15:00 04/25/17 15:00 04/25/17 15:00 04/25/17 15:00 Intake and Output: 04/25/17 04/25/17 06:59 18:59 Intake Total 1400 Balance 1400 - Medications Medications: Current Medications Dicyclomine HCl (Bentyl) 20 mg PO BID MAXIME Ciprofloxacin (Cipro 400mg/200ml Dsw) 400 mg in 200 mls @ 133 mls/hr IVPB Q12H MAXIME Last Admin: 04/25/17 11:24 Dose: 133 mls/hr Metronidazole (Flagyl) 500 mg in 100 mls @ 100 mls/hr IVPB Q8 MAXIME Last Admin: 04/25/17 14:21 Dose: 100 mls/hr Potassium Chloride/Dextrose/Sod Cl (Potassium Chl 10 Meq In D5-1/2ns) 1,000 mls @ 100 mls/hr IV .Q10H MAXIME Last Admin: 04/25/17 10:21 Dose: 100 mls/hr Metoclopramide HCl (Reglan) 5 mg IVP Q6 MAXIME Last Admin: 04/25/17 12:45 Dose: Not Given Ondansetron HCl (Zofran Inj) 4 mg IVP Q6 PRN PRN Reason: Nausea/Vomiting Last Admin: 04/21/17 15:13 Dose: 4 mg Sucralfate (Carafate Tab) 1 gm PO ACBHS MAXIME Last Admin: 04/25/17 08:30 Dose: Not Given - Labs Labs: 04/25/17 09:59 04/25/17 09:59 Assessment and Plan - Assessment and Plan (Free Text) Assessment: A/P 31 yr old male admitteed for abdominal pain/ colitis s/p EGD/ colonoscopy pt treated with antibiotics and clinically improved D/w Dr. tara, stable for discharge home otday and f/u with PMD in 1 week discharge instructions discussed with patient who understands and agrees with plan RX given f/u with Dr. Krut damon in 4 weeks
--- NOTE | 2017-04-25 18:38 | PN ---
DATE: 04/23/2017 LOCATION: 352, Bed A. SUBJECTIVE: This is a 31 years old male and examined in rounds with no significant clinical changes or reported active bleeding with subsequent decrease of abdominal pain. The entire chart is reviewed, including but not limited to almost recent lab and radiology study results, current and previous medication list, current and previous medical events, and the patient tolerated so far oral intake well. Case discussed at length with the staff on the floor. The most recent lab results showed normal labs. CBC with low potassium 3.3, low calcium 7.9 with normal CEA. A stool for leukocyte was negative and for C. diff was negative. PHYSICAL EXAMINATION: GENERAL: A 31 years old male, awake, alert, oriented. VITAL SIGNS: Afebrile with pulse of 58, respiratory rate 20 to 22, blood pressure 114/70. HEENT: Show pale, dry oral mucous membrane, nonicteric sclerae. LUNGS: Reveal scattered crepitations, decreased air entry at bases. HEART: Positive S1 and S2. ABDOMEN: Soft, bowel sounds are present with generalized tenderness but mainly in the left side. No masses or organomegaly. No rebound tenderness or guarding. RECTAL: *------*. EXTREMITIES: Significant for no edema, clubbing, or cyanosis. NEUROLOGIC: No new reported neurological deficits, sensory or motor. IMPRESSION: 1. Exacerbation of peptic ulcer disease. 2. Colitis, diagnosed by CAT scan, *------* of infectious colitis versus inflammatory bowel disease. SUGGESTIONS: 1. Continue current management. 2. Colonoscopy after adequate preparation. 3. Continue current IV antibiotics. 4. Further recommendation to follow. Delaney Kenny MD
--- NOTE | 2017-04-25 23:59 | CP.PCM.DIS ---
Provider - Provider Date of Admission: 04/23/17 11:46 Attending physician: Danny Allen MD Time Spent in preparation of Discharge (in minutes): 56 Diagnosis - Discharge Diagnosis (1) Abnormal findings on esophagogastroduodenoscopy (EGD) Status: Acute (2) Abdominal pain Status: Acute (3) Colitis Status: Acute (4) Acute gastroenteritis Status: Acute (5) Gastritis Status: Acute Hospital Course - Lab Results Lab Results: Most Recent Lab Values WBC 5.4 K/uL (4.8-10.8) 04/25/17 09:59 RBC 4.42 Mil/uL (4.40-5.90) 04/25/17 09:59 Hgb 14.1 g/dL (12.0-18.0) 04/25/17 09:59 Hct 41.7 % (35.0-51.0) 04/25/17 09:59 MCV 94.5 fL (80.0-94.0) H 04/25/17 09:59 MCH 32.0 pg (27.0-31.0) H 04/25/17 09:59 MCHC 33.8 g/dL (33.0-37.0) 04/25/17 09:59 RDW 11.9 % (11.5-14.5) 04/25/17 09:59 Plt Count 236 K/uL (130-400) 04/25/17 09:59 MPV 10.0 fL (7.2-11.7) 04/25/17 09:59 Neut % (Auto) 51.4 % (50.0-75.0) 04/25/17 09:59 Lymph % (Auto) 31.7 % (20.0-40.0) 04/25/17 09:59 Loving % (Auto) 13.2 % (0.0-10.0) H 04/25/17 09:59 Eos % (Auto) 2.9 % (0.0-4.0) 04/25/17 09:59 Baso % (Auto) 0.8 % (0.0-2.0) 04/25/17 09:59 Neut # 2.8 K/uL (1.8-7.0) 04/25/17 09:59 Lymph # 1.7 K/uL (1.0-4.3) 04/25/17 09:59 Loving # 0.7 K/uL (0.0-0.8) 04/25/17 09:59 Eos # 0.2 K/uL (0.0-0.7) 04/25/17 09:59 Baso # 0.0 K/uL (0.0-0.2) 04/25/17 09:59 ESR 5 mm/hr (0-15) 04/22/17 06:16 Sodium 136 mmol/L (132-148) 04/25/17 09:59 Potassium 3.9 mmol/L (3.6-5.2) 04/25/17 09:59 Chloride 99 mmol/L (98-107) 04/25/17 09:59 Carbon Dioxide 24 mmol/L (22-30) 04/25/17 09:59 Anion Gap 17 (10-20) 04/25/17 09:59 BUN 7 mg/dL (9-20) L 04/25/17 09:59 Creatinine 0.7 MG/DL (0.8-1.5) L 04/25/17 09:59 Est GFR ( Amer) > 60 04/25/17 09:59 Est GFR (Non-Af Amer) > 60 04/25/17 09:59 Random Glucose 88 mg/dL (75-110) 04/25/17 09:59 Calcium 9.0 mg/dl (8.6-10.4) 04/25/17 09:59 Total Bilirubin 2.5 mg/dL (0.2-1.3) H 04/25/17 09:59 AST 51 U/L (17-59) 04/25/17 09:59 ALT 48 U/L (21-72) 04/25/17 09:59 Alkaline Phosphatase 75 U/L (38-126) 04/25/17 09:59 Total Protein 7.5 g/dL (6.3-8.3) 04/25/17 09:59 Albumin 4.0 g/dL (3.5-5.0) 04/25/17 09:59 Globulin 3.5 gm/dL (2.2-3.9) 04/25/17 09:59 Albumin/Globulin Ratio 1.1 (1.0-2.1) 04/25/17 09:59 Lipase 101 U/L (23-300) 04/21/17 05:44 Carcinoembryonic Ag 0.8 ng/mL (0-3.0) 04/22/17 06:16 Urine Color Ryann (YELLOW) 04/22/17 18:09 Urine Clarity Hazy (Clear) 04/22/17 18:09 Urine pH 6.0 (5.0-8.0) 04/22/17 18:09 Ur Specific [place] 1.034 (1.003-1.030) H 04/22/17 18:09 Urine Protein 1+ mg/dL (NEGATIVE) H 04/22/17 18:09 Urine Glucose (UA) Normal mg/dL (Normal) 04/22/17 18:09 Urine Ketones 1+ mg/dL (NEGATIVE) H 04/22/17 18:09 Urine Blood Negative (NEGATIVE) 04/22/17 18:09 Urine Nitrate Negative (NEGATIVE) 04/22/17 18:09 Urine Bilirubin Negative (NEGATIVE) 04/22/17 18:09 Urine Urobilinogen Normal mg/dL (0.2-1.0) 04/22/17 18:09 Ur Leukocyte Esterase Neg Fernanda/uL (Negative) 04/22/17 18:09 Urine WBC (Auto) 5 /hpf (0-5) 04/22/17 18:09 Urine RBC (Auto) 4 /hpf (0-3) H 04/22/17 18:09 Urine Bacteria Few (<OCC) H 04/22/17 18:09 Stool Leukocytes, Qual Negative (NEGATIVE) 04/21/17 Unknown C. difficile Ag & Toxin Negative (NEGATIVE) 04/21/17 Unknown - Hospital Course Hospital Course: 31 yr old male admitteed for abdominal pain/ colitis s/p EGD/ colonoscopy pt treated with antibiotics and clinically improved stable for discharge home otday and f/u with PMD in 1 week discharge instructions discussed with patient who understands and agrees with plan RX given f/u with Dr. Kurt damon in 4 weeks Discharge Exam - Head Exam Head Exam: ATRAUMATIC, NORMAL INSPECTION, NORMOCEPHALIC - Eye Exam Eye Exam: EOMI, Normal appearance, PERRL Pupil Exam: NORMAL ACCOMODATION, PERRL - ENT Exam ENT Exam: Mucous Membranes Moist - Cardiovascular Exam Cardiovascular Exam: REGULAR RHYTHM, +S1, +S2 - GI/Abdominal Exam GI & Abdominal Exam: Normal Bowel Sounds - Rectal Exam Rectal Exam: Deferred Discharge Plan - Discharge Medications Prescriptions: Ciprofloxacin [Cipro] 500 mg PO BID #6 tab Metronidazole [Flagyl] 500 mg PO Q8 #9 tablet Pantoprazole [Protonix] 40 mg PO DAILY #30 ect Metoclopramide HCl [Reglan] 5 mg PO TID #9 tablet - Follow Up Plan Condition: STABLE Disposition: HOME/ ROUTINE Additional Instructions: f/u with PMD in i week f/u with Dr. Hicks office in 4 weeks- call for appointment continue medication as per Med. Rec Referrals: [facility] [Outside]
--- NOTE | 2017-04-26 16:29 | CON ---
DATE: SUBJECTIVE: This is a 31-year-old male seen and examined in rounds for GI consultation on 04/21/2017 as requested by the admitting medical team, re-examined again today with intermittent period of abdominal pain, periods of nausea and vomiting on and off with no reported active bleeding. The entire chart is reviewed including but not limited to most recent lab and radiological data current and previous medication list, current and previous medical events. The patient had episodes of nausea and vomiting which was subsiding this morning. PHYSICAL EXAMINATION GENERAL: This is a 31-year-old male, awake, alert, oriented, afebrile. VITAL SIGNS: Pulse of 70, respiratory rate 20-22, blood pressure of 106/72. HEENT: Showed dry oral mucous membrane, anicteric sclerae. HEART: Positive S1 and S2. LUNGS: He has got crepitations, decreased air entry at bases. ABDOMEN: Soft with generalized tenderness, no masses or organomegaly. Bowel sounds are hyperactive. RECTAL: The patient refused. EXTREMITIES: Without significant clubbing, cyanosis or edema. NEUROLOGIC: No reported neurological deficits, sensory or motor. LABORATORY DATA: Today's lab showed normal CBC with low potassium 3.3, low calcium 7.6. The patient had mildly elevated total bilirubin 2.3. CAT scan of the abdomen and pelvis done yesterday and reports are seen indicative of pancolitis and ascending and descending colitis. IMPRESSION: Colitis of unclear etiology that could be secondary to, but not limited to infectious . Delaney Kenny MD
== END 2017-04-25 17:59 | disposition home or self-care (01) | DRG 182 ==
LOC: C.ER 04:58 → C.3T 10:46 → OBSVTOIN 04-23 11:46
PROVIDERS: ADMIT Internal Medicine; ATTEND Internal Medicine
PROC: 0DB68ZX Excision of Stomach, Via Natural or Artificial Opening Endoscopic, Diagnostic (ICD-10-PCS; principal; 2017-04-22 10:53)
PROC: 0DBM8ZX Excision of Descending Colon, Via Natural or Artificial Opening Endoscopic, Diagnostic (ICD-10-PCS; 2017-04-25)
DX: K29.00 Acute gastritis without bleeding (principal); K92.0 Hematemesis; A09 Infectious gastroenteritis and colitis, unspecified; K29.80 Duodenitis without bleeding; B96.81 Helicobacter pylori [H. pylori] as the cause of diseases classified elsewhere; K58.0 Irritable bowel syndrome with diarrhea; K64.8 Other hemorrhoids; K27.3 Acute peptic ulcer, site unspecified, without hemorrhage or perforation; F17.210 Nicotine dependence, cigarettes, uncomplicated; N20.0 Calculus of kidney